=== PATIENT | male | born 1980 | race African-American/Black ===

== ENCOUNTER 2018-10-23 12:48 | Emergency (ER) | payer OTHER, SELFPAY ==
[~2018-10-23] VITALS: Ht 175.3 cm; Wt 72.7 kg
[2018-10-23] MEDS ORDERED: EPINEPHrine INJ 1 MG/ML 1ML AMP IM STA (13:16)
[2018-10-23] MEDS ORDERED: diphenhydrAMINE INJ 50MG/ML VIAL (J1200) IV ONE (13:30)
[2018-10-23] MEDS ORDERED: FAMOTIDINE INJ 20MG/2ML VIAL (S0028) IVP ONE (13:30)
[2018-10-23] MEDS ORDERED: NS 1,000 ML IV ONE (13:30)
[2018-10-23 13:31] LABS: BASO # 0.1 10^3/uL (0.0-0.2); BASO % 0.6 % (0.0-1.0); EOS # 0.5 10^3/uL (0.0-0.50); EOS % 6.5 % (0.0-3.0); HEMATOCRIT 43.4 % (42.0-52.0); HEMOGLOBIN 13.9 g/dl (13.5-17.5); LYMPH # 3.5 10^3/uL (1.5-4.5); LYMPH % 45.2 % (24.0-44.0); MEAN CORPUSCULAR HEMOGLOBIN 28.2 pg (27.0-33.0); MONO # 0.7 10^3/uL (0.0-0.8); MONO % 8.9 % (0.0-5.0); NEUTROPHILS % 38.7 % (36.0-66.0); PLATELET COUNT, AUTOMATED 287 10^3/uL (150-450); RED BLOOD COUNT 4.93 10^6/uL (4.30-6.10); WHITE BLOOD COUNT 7.8 10^3/uL (4.0-10.0)
[2018-10-23] MEDS ORDERED: ASPIRIN 81 MG CHEW TABLET PO ONE (13:45)
[2018-10-23] MEDS ORDERED: NITROGLYCERIN 0.4 MG SUBL TABLET SL PRN (13:45)
[2018-10-23 14:03] LABS: ALBUMIN 4.2 GM/DL (3.2-5.2); ALT/SGPT 27 U/L (12-78); BILIRUBIN,DIRECT < 0.1 MG/DL (0.0-0.2); BILIRUBIN,TOTAL 0.4 MG/DL (0.2-1.0); BLOOD UREA NITROGEN 16 MG/DL (7-18); CALCIUM LEVEL 9.6 MG/DL (8.5-10.1); CARBON DIOXIDE LEVEL 30 MEQ/L (21-32); CHLORIDE LEVEL 100 MEQ/L (98-107); CK-MB VALUE MASS < 1.0 NG/ML (<3.6); CPK CREATINE PHOSPHOKINASE 441 U/L (39-308); CREATININE FOR GFR 1.49 MG/DL (0.70-1.30); GLOMERULAR FILTRATION RATE > 60.0 (>60); GLUCOSE, FASTING 93 MG/DL (70-100); LIPASE 165 U/L (73-393); MB/CK RELATIVE INDEX 0.23 (< OR =4); POTASSIUM SERUM 4.2 MEQ/L (3.5-5.1); SODIUM LEVEL 137 MEQ/L (136-145); TOTAL PROTEIN 8.4 GM/DL (6.4-8.2); TROPONIN I < 0.02 NG/ML (< 0.10)
[2018-10-23 15:16] VITALS: BP 143/80
[2018-10-23] MEDS ORDERED: OMEP40CA2 PO (15:21)
--- NOTE | 2018-10-23 16:32 | REP ---
PA and lateral chest: There are no comparisons. The lung hernandez are clear. The cardiac size is normal. The kayode, mediastinum, and skeletal structures are unremarkable. Impression: Negative PA and lateral chest. Electronically Signed by Richie Quinonez MD 10/23/2018 04:24 P
--- NOTE | 2018-10-24 21:12 | ECGEPIP ---
[facility] - ED Test Date: 2018-10-23 Pat Name: MARISA YUN Department: Room: - Gender: Male [employer]: : 1980 Requested By: David Frank Order Number: [id number] Reading MD: Urmila Shelby Measurements Intervals [place] Rate: 66 P: 62 [place]: 164 QRS: 71 QRSD: 86 T: 54 QT: 371 QTc: 389 Interpretive Statements SINUS RHYTHM WITH SINUS ARRHYTHMIA ST ELEVATION, PROBABLY EARLY REPOLARIZATION, CLINICAL CORRELATION TO EXCLUDE ISCHEMIA NO PRIOR FOR COMPARISON Electronically Signed on 10-24-2018 21:12:14 EDT by Urmila Shelby
== END 2018-10-23 16:09 | disposition home or self-care (01) ==
LOC: M ED 12:48
DX: R07.89 Other chest pain (principal); R74.8 Abnormal levels of other serum enzymes; F17.210 Nicotine dependence, cigarettes, uncomplicated

== ENCOUNTER → 2018-11-25 | Outpatient (CLI) | payer SELFPAY ==
[~2018-11-25] MED LIST: OMEP40CA2 PO
== END ==
LOC: M OUTALCOH 08:08
PROVIDERS: ATTEND Psychiatry & Neurology Psychiatry
DX: Z03.89 Encounter for observation for other suspected diseases and conditions ruled out (principal)

== ENCOUNTER 2018-12-07 14:58 | Outpatient (RCR) | payer SELFPAY | END 2018-12-27 | LOC: M OUTALCOH 14:58 | PROVIDERS: ATTEND Psychiatry & Neurology Psychiatry | DX: Z03.89 Encounter for observation for other suspected diseases and conditions ruled out (principal) ==

== ENCOUNTER 2019-03-31 12:06 | Emergency (ER) | payer OTHER, SELFPAY ==
[~2019-03-31] VITALS: Ht 175.3 cm; Wt 80.1 kg
[~2019-03-31 12:06] MED LIST changes: -OMEP40CA2 PO; +OMEP40CA97 PO
[2019-03-31] MEDS ORDERED: ASPI-1 PO (12:22)
--- NOTE | 2019-03-31 15:22 | REP ---
CT brain: 03/31/2019. Indication: Headache. Recent head trauma. Comparison: None. Technique: Unenhanced axial CT images of the brain were obtained from skull base to vertex with coronal reconstructions provided. Findings: There is no acute intracranial hemorrhage, acute cortical infarction, mass effect, hydrocephalus or acute calvarial fracture. Cavum septum pellucidum is incidentally noted. There is mild periosteal mucosal thickening within the ethmoid air cells. Impression: No acute intracranial process. Electronically Signed by Rubio Berrios DO 03/31/2019 03:14 P
--- NOTE | 2019-03-31 15:27 | REP ---
CT cervical spine: 03/31/2019. Indication: Neck pain following recent cervical spine trauma. Comparison: None. Technique: Unenhanced axial CT images of the cervical spine were obtained with coronal and sagittal reconstructions provided. Findings: There is no acute fracture, subluxation or dislocation. There is straightening of the cervical lordosis. Chronic fracture of an anterior superior C5 osteophyte is present. The prevertebral and additional visualized paraspinal soft tissues are unremarkable. There is no hemorrhage or additional acute post traumatic sequelae within the spinal canal. Paranasal sinus mucosal disease is present including evidence of acute inflammation/frothy secretions within the left sphenoid sinus. Impression: No acute osseous injury of the cervical spine. Paranasal sinus mucosal disease. Electronically Signed by Rubio Berrios DO 03/31/2019 03:19 P
[2019-03-31 16:38] VITALS: BP 136/71
[2019-03-31] MEDS ORDERED: AMOX500C PO (16:48)
== END 2019-03-31 16:58 | disposition home or self-care (01) ==
LOC: M ED 12:06
DX: J01.90 Acute sinusitis, unspecified (principal); K04.7 Periapical abscess without sinus; Z79.82 Long term (current) use of aspirin

== ENCOUNTER 2019-05-04 05:35 | Emergency (ER) | payer OTHER ==
[~2019-05-04] VITALS: Ht 175.3 cm; Wt 79.9 kg
[~2019-05-04 05:35] MED LIST changes: +AMOX500C PO; +ASPI-1 PO
[2019-05-04] MEDS ORDERED: ACETAMINOPHEN 500 MG TAB PO ONE (08:00)
[2019-05-04] MEDS ORDERED: BENZOCAINE 20% GEL 9GM TUBE (ANBESOL MAX STRENGTH) TOP ONE (08:00)
[2019-05-04] MEDS ORDERED: LIDOCAINE 2% W/ EPINEPHRINE 1.7 ML DENTAL INJ SM ONE (08:00)
[2019-05-04 09:17] VITALS: BP 125/87
[2019-05-04] MEDS ORDERED: PENI500T PO (09:37)
== END 2019-05-04 09:48 | disposition home or self-care (01) ==
LOC: M ED 05:35
DX: K12.2 Cellulitis and abscess of mouth (principal)

== ENCOUNTER → 2019-06-20 | Outpatient (REF) ==
[~2019-06-20] MED LIST changes: +PENI500T PO
[2019-06-20 16:10] LABS: RUBELLA IgG QUALITATIVE IMMUNE (IMMUNE)
== END ==
LOC: M LAB 14:46
PROVIDERS: ATTEND Nurse Practitioner Adult Health
DX: Z02.1 Encounter for pre-employment examination (principal)

== ENCOUNTER → 2019-06-22 | Outpatient (REF) | LOC: M LAB 14:32 | PROVIDERS: ATTEND Nurse Practitioner Adult Health | DX: Z02.1 Encounter for pre-employment examination (principal) ==

== ENCOUNTER 2019-09-13 15:52 | Emergency (ER) | payer OTHER ==
[~2019-09-13] VITALS: Ht 175.3 cm; Wt 79.2 kg
[2019-09-13 15:53] VITALS: BP 116/71
[2019-09-13] MEDS ORDERED: VENTAER INH (16:18)
== END 2019-09-13 16:56 | disposition home or self-care (01) ==
LOC: M ED 15:52
DX: Z76.0 Encounter for issue of repeat prescription (principal); F17.210 Nicotine dependence, cigarettes, uncomplicated

== ENCOUNTER 2020-08-20 19:07 | Emergency (ER) | payer OTHER ==
[~2020-08-20] VITALS: Ht 175.3 cm; Wt 74.5 kg
[~2020-08-20 19:07] MED LIST changes: +VENTAER INH
[2020-08-20] MEDS ORDERED: EPIN11.7 IH (19:29)
--- NOTE | 2020-08-20 20:26 | ECGEPIP ---
[facility] - ED Test Date: 2020-08-20 Pat Name: MARISA YUN Department: Room: - Gender: Male Chalk Tester: Taye UGARTE : 1980 Requested By: MIMI SNYDER Order Number: [id number] Reading MD: Rob Campbell Measurements Intervals [place] Rate: 73 P: 47 [place]: 146 QRS: 78 QRSD: 78 T: 62 QT: 350 QTc: 385 Interpretive Statements Normal sinus rhythm Nonspecific ST-T wave abnormalities Similar to tracing done 10-23-18 Electronically Signed on 08-20-2020 20:25:50 EDT by Rob Campbell
[2020-08-20] MEDS ORDERED: VENTAER INH (22:03)
[2020-08-20 22:07] VITALS: BP 109/58
== END 2020-08-20 22:09 | disposition home or self-care (01) ==
LOC: M ED 19:07
DX: R00.0 Tachycardia, unspecified (principal); J45.909 Unspecified asthma, uncomplicated

== ENCOUNTER 2020-10-05 08:58 | Emergency (ER) | payer OTHER ==
[~2020-10-05] VITALS: Ht 175.3 cm; Wt 75.7 kg
[~2020-10-05 08:58] MED LIST changes: +EPIN11.7 IH; +OMEP40CA4 PO; -OMEP40CA97 PO
--- NOTE | 2020-10-05 10:10 | REP ---
INDICATION: please include toes in XRAY COMPARISON: None. TECHNIQUE: AP, lateral, bilateral oblique views right foot. FINDINGS: The osseous structures and joint spaces are intact and normal. There is no evidence for acute fracture or dislocation. Surrounding soft tissues are unremarkable. No subcutaneous emphysema or radiodense foreign body. IMPRESSION: . No acute fracture or dislocation. <Electronically signed by José Miguel Ingram > 10/05/20 1001
[2020-10-05 10:14] LABS: HEMATOCRIT 42.7 % (42.0-52.0); HEMOGLOBIN 13.8 g/dl (13.5-17.5); MEAN CORPUSCULAR HEMOGLOBIN 27.9 pg (27.0-33.0); MEAN CORPUSCULAR HGB CONC 32.3 g/dl (32.0-36.5); MEAN CORPUSCULAR VOLUME 86.3 fl (80.0-96.0); PLATELET COUNT, AUTOMATED 318 10^3/uL (150-450); RED BLOOD COUNT 4.95 10^6/uL (4.30-6.10); WHITE BLOOD COUNT 7.3 10^3/uL (4.0-10.0)
[2020-10-05 10:41] LABS: ALBUMIN 3.9 GM/DL (3.2-5.2); ALT/SGPT 25 U/L (12-78); BILIRUBIN,DIRECT < 0.1 MG/DL (0.0-0.2); BILIRUBIN,TOTAL 0.2 MG/DL (0.2-1.0); C REACTIVE PROTEIN QUANTITATIV 1.45 MG/DL (0.00-0.30); TOTAL PROTEIN 7.9 GM/DL (6.4-8.2); URIC ACID 8.1 MG/DL (3.5-7.2)
[2020-10-05 10:43] LABS: ERYTHROCYTE SEDIMENTATION RATE 27 mm/hr (0-15)
[2020-10-05] MEDS ORDERED: INDO50CA91 PO (11:30)
[2020-10-05 11:39] VITALS: BP 141/85
== END 2020-10-05 11:48 | disposition home or self-care (01) ==
LOC: M ED 08:58
DX: M10.071 Idiopathic gout, right ankle and foot (principal); J45.909 Unspecified asthma, uncomplicated; F17.200 Nicotine dependence, unspecified, uncomplicated

== ENCOUNTER 2021-02-25 08:21 | Outpatient (RCR) | payer OTHER ==
[~2021-02-25 08:21] MED LIST changes: +INDO50CA91 PO
== END 2021-02-26 ==
LOC: M OUTALCOH 08:21
PROVIDERS: ATTEND Psychiatry & Neurology Psychiatry
DX: F10.20 Alcohol dependence, uncomplicated (principal)

== ENCOUNTER 2021-03-01 14:48 | Outpatient (RCR) | payer OTHER | END 2021-03-29 | LOC: M OUTALCOH 14:48 | PROVIDERS: ATTEND Psychiatry & Neurology Psychiatry | DX: F10.20 Alcohol dependence, uncomplicated (principal) ==

== ENCOUNTER 2022-02-21 13:58 | Emergency (ER) | payer OTHER ==
[~2022-02-21] VITALS: Ht 175.3 cm; Wt 72.7 kg
[2022-02-21] MEDS ORDERED: KETOROLAC 30 MG/ML 1ML VIAL IV ONE ×2 (17:35→18:00)
[2022-02-21] MEDS ORDERED: KETOROLAC 60MG 2ML VIAL IM ONE (17:45)
[2022-02-21 17:49] LABS: ALBUMIN 5.1 G/DL (3.2-5.2); ALT/SGPT 25 U/L (7.0-40); BILIRUBIN,DIRECT 0.2 MG/DL (<0.4); BILIRUBIN,TOTAL 0.7 MG/DL (0.3-1.2); BLOOD UREA NITROGEN 13 MG/DL (9-23); CALCIUM LEVEL 10.5 MG/DL (8.5-10.1); CARBON DIOXIDE LEVEL 22 MMOL/L (20-31); CHLORIDE LEVEL 99 MMOL/L (98-107); CK-MB VALUE MASS < 1.0 NG/ML (<3.6); CPK CREATINE PHOSPHOKINASE 345 U/L (46-171); CREATININE FOR GFR 1.39 MG/DL (0.70-1.30); GLOMERULAR FILTRATION RATE > 60.0 (>60); GLUCOSE, FASTING 103 MG/DL (60-100); LIPASE 36 U/L (12-53); MB/CK RELATIVE INDEX 0.28 (< OR =4); POTASSIUM SERUM 4.7 MMOL/L (3.5-5.1); SODIUM LEVEL 135 MMOL/L (136-145); THYROID STIMULATING HORMONE 0.743 uIU/ML (0.55-4.78); TOTAL PROTEIN 9.5 G/DL (5.7-8.2)
[2022-02-21 18:05] LABS: BASO % 0.4 % (0.0-1.0); EOS % 0.3 % (0.0-3.0); HEMATOCRIT 45.2 % (42.0-52.0); LYMPH % 13.2 % (24.0-44.0); MEAN CORPUSCULAR HEMOGLOBIN 27.5 pg (27.0-33.0); MEAN CORPUSCULAR HGB CONC 33.2 g/dl (32.0-36.5); MEAN CORPUSCULAR VOLUME 82.8 fl (80.0-96.0); MONO # 0.8 10^3/uL (0.0-0.8); MONO % 10.1 % (2.0-8.0); NEUTROPHILS # 5.8 10^3/uL (1.5-8.5); NEUTROPHILS % 75.7 % (36.0-66.0); PLATELET COUNT, AUTOMATED 329 10^3/uL (150-450); RED BLOOD COUNT 5.46 10^6/uL (4.30-6.10); WHITE BLOOD COUNT 7.7 10^3/uL (4.0-10.0)
[2022-02-21 18:38] LABS: CK-MB VALUE MASS < 1.0 NG/ML (<3.6); CPK CREATINE PHOSPHOKINASE 291 U/L (46-171); MB/CK RELATIVE INDEX 0.34 (< OR =4)
[2022-02-21] MEDS ORDERED: ISOVUE-370 76% 100ML VIAL As Ordered ONE (18:45)
[2022-02-21 20:18] VITALS: BP 116/85
== END 2022-02-21 20:26 | disposition home or self-care (01) ==
LOC: M ED 13:58
DX: N40.0 Benign prostatic hyperplasia without lower urinary tract symptoms (principal); K62.89 Other specified diseases of anus and rectum; K75.89 Other specified inflammatory liver diseases; R00.2 Palpitations; R00.0 Tachycardia, unspecified; F10.10 Alcohol abuse, uncomplicated; Z79.899 Other long term (current) drug therapy
CPT/HCPCS: 71045; 74177; 80048; 80076; 82550; 82553; 83690; 84443; 84484; 85025; 93005; 93041; 94760; 96374; 99285; J1885

== ENCOUNTER 2022-06-04 19:36 | Emergency (ER) | payer SELFPAY, OTHER ==
[~2022-06-04] VITALS: Ht 175.3 cm; Wt 77.7 kg
[2022-06-04 21:19] LABS: BASO % 0.6 % (0.0-1.0); EOS # 0.2 10^3/uL (0.0-0.5); EOS % 2.4 % (0.0-3.0); HEMATOCRIT 42.4 % (42.0-52.0); HEMOGLOBIN 13.8 g/dl (13.5-17.5); LYMPH # 2.2 10^3/uL (1.5-5.0); LYMPH % 30.5 % (24.0-44.0); MEAN CORPUSCULAR HEMOGLOBIN 27.5 pg (27.0-33.0); MEAN CORPUSCULAR HGB CONC 32.5 g/dl (32.0-36.5); MEAN CORPUSCULAR VOLUME 84.5 fl (80.0-96.0); MONO # 0.5 10^3/uL (0.0-0.8); MONO % 6.9 % (2.0-8.0); NEUTROPHILS # 4.3 10^3/uL (1.5-8.5); NEUTROPHILS % 59.3 % (36.0-66.0); PLATELET COUNT, AUTOMATED 286 10^3/uL (150-450); RED BLOOD COUNT 5.02 10^6/uL (4.30-6.10); WHITE BLOOD COUNT 7.2 10^3/uL (4.0-10.0)
[2022-06-04 21:33] LABS: INR 1.02; PROTHROMBIN TIME 13.6 SECONDS (12.5-14.5)
[2022-06-04 21:34] LABS: PARTIAL THROMBOPLASTIN TIME 29.2 SECONDS (24.8-34.2)
[2022-06-04 22:31] LABS: ALBUMIN 4.2 G/DL (3.2-5.2); ALKALINE PHOSPHATASE 51 U/L (46-116); ALT/SGPT 23 U/L (7.0-40); AST/SGOT 24 U/L (<34); BILIRUBIN,DIRECT 0.1 MG/DL (<0.4); BILIRUBIN,TOTAL 0.4 MG/DL (0.3-1.2); BLOOD UREA NITROGEN 9 MG/DL (9-23); CALCIUM LEVEL 9.6 MG/DL (8.5-10.1); CARBON DIOXIDE LEVEL 27 MMOL/L (20-31); CHLORIDE LEVEL 104 MMOL/L (98-107); CK-MB VALUE MASS < 1.0 NG/ML (<3.6); CPK CREATINE PHOSPHOKINASE 445 U/L (46-171); FREE T4 0.95 NG/DL (0.89-1.76); GLOMERULAR FILTRATION RATE > 60.0 (>60); GLUCOSE, FASTING 87 MG/DL (60-100); MAGNESIUM LEVEL 1.7 MG/DL (1.8-2.4); MB/CK RELATIVE INDEX 0.22 (< OR =4); PHOSPHORUS LEVEL 2.7 MG/DL (2.5-4.9); POTASSIUM SERUM 4.8 MMOL/L (3.5-5.1); SODIUM LEVEL 139 MMOL/L (136-145); THYROID STIMULATING HORMONE 0.371 uIU/ML (0.55-4.78)
[2022-06-04 23:01] VITALS: BP 96/62
[2022-06-04] MEDS ORDERED: ISOVUE-370 76% 100ML VIAL As Ordered ONE (23:13)
[2022-06-04] MEDS ORDERED: MAGNESIUM OXIDE 400MG TAB (MAG-OX) PO ONE (23:15)
[2022-06-04 23:42] LABS: TOTAL PROTEIN 7.7 G/DL (5.7-8.2)
[2022-06-05 00:10] LABS: HIV 1&2 SCREEN CENTAUR NEGATIVE (NEGATIVE)
[2022-06-05 01:06] LABS: CK-MB VALUE MASS < 1.0 NG/ML (<3.6)
[2022-06-05 01:11] LABS: CPK CREATINE PHOSPHOKINASE 284 U/L (46-171); MB/CK RELATIVE INDEX 0.35 (< OR =4)
== END 2022-06-05 02:08 | disposition home or self-care (01) ==
LOC: M ED 19:36
DX: R00.2 Palpitations (principal); R42 Dizziness and giddiness; M54.6 Pain in thoracic spine
CPT/HCPCS: 36415; 71046; 71275; 80048; 80076; 82550; 82553; 83735; 84100; 84439; 84443; 84484; 85025; 85610; 85730; 87389; 93005; 93041; 94760; 99285; Q9967

== ENCOUNTER 2022-06-29 20:04 | Emergency (ER) | payer OTHER ==
[~2022-06-29] VITALS: Ht 175.3 cm; Wt 78.7 kg
[2022-06-29] MEDS ORDERED: METO1TAB87 (20:19)
[2022-06-29 21:24] LABS: BASO # 0.1 10^3/uL (0.0-0.2); BASO % 0.6 % (0.0-1.0); EOS # 0.5 10^3/uL (0.0-0.5); EOS % 5.6 % (0.0-3.0); HEMATOCRIT 42.2 % (42.0-52.0); HEMOGLOBIN 13.2 g/dl (13.5-17.5); LYMPH # 2.2 10^3/uL (1.5-5.0); LYMPH % 26.2 % (24.0-44.0); MEAN CORPUSCULAR HEMOGLOBIN 26.8 pg (27.0-33.0); MEAN CORPUSCULAR HGB CONC 31.3 g/dl (32.0-36.5); MEAN CORPUSCULAR VOLUME 85.8 fl (80.0-96.0); MONO # 0.7 10^3/uL (0.0-0.8); MONO % 7.9 % (2.0-8.0); NEUTROPHILS % 59.5 % (36.0-66.0); PLATELET COUNT, AUTOMATED 284 10^3/uL (150-450); RED BLOOD COUNT 4.92 10^6/uL (4.30-6.10); WHITE BLOOD COUNT 8.4 10^3/uL (4.0-10.0)
[2022-06-29 21:42] LABS: LIPASE 32 U/L (12-53)
[2022-06-29 21:44] LABS: CK-MB VALUE MASS < 1.0 NG/ML (<3.6)
[2022-06-29 22:14] LABS: ALBUMIN 4.3 G/DL (3.2-5.2); ALKALINE PHOSPHATASE 69 U/L (46-116); ALT/SGPT 23 U/L (7.0-40); AST/SGOT 21 U/L (<34); BILIRUBIN,DIRECT 0.1 MG/DL (<0.4); BILIRUBIN,TOTAL 0.3 MG/DL (0.3-1.2); BLOOD UREA NITROGEN 10 MG/DL (9-23); CALCIUM LEVEL 9.4 MG/DL (8.5-10.1); CARBON DIOXIDE LEVEL 30 MMOL/L (20-31); CHLORIDE LEVEL 103 MMOL/L (98-107); CPK CREATINE PHOSPHOKINASE 731 U/L (46-171); CREATININE FOR GFR 1.26 MG/DL (0.70-1.30); GLOMERULAR FILTRATION RATE > 60.0 (>60); GLUCOSE, FASTING 92 MG/DL (60-100); MB/CK RELATIVE INDEX 0.13 (< OR =4); POTASSIUM SERUM 4.3 MMOL/L (3.5-5.1); SODIUM LEVEL 139 MMOL/L (136-145); TOTAL PROTEIN 7.8 G/DL (5.7-8.2)
[2022-06-29 23:35] VITALS: BP 136/74
== END 2022-06-29 23:37 | disposition home or self-care (01) ==
LOC: M ED 20:04
DX: R00.2 Palpitations (principal); R00.1 Bradycardia, unspecified; I49.9 Cardiac arrhythmia, unspecified; J45.909 Unspecified asthma, uncomplicated; F10.10 Alcohol abuse, uncomplicated; Z79.899 Other long term (current) drug therapy

== ENCOUNTER 2022-10-26 23:56 | Emergency (ER) | payer OTHER, SELFPAY ==
[~2022-10-26] VITALS: Ht 172.7 cm; Wt 78.1 kg
[~2022-10-26 23:56] MED LIST changes: +METO1TAB87
[2022-10-26 23:57] VITALS: TEMP 97.5
[2022-10-27 02:40] LABS: BASO # 0.1 10^3/uL (0.0-0.2); BASO % 0.6 % (0.0-1.0); EOS # 0.6 10^3/uL (0.0-0.5); EOS % 6.5 % (0.0-3.0); HEMATOCRIT 45.3 % (42.0-52.0); HEMOGLOBIN 14.3 g/dl (13.5-17.5); LYMPH # 2.2 10^3/uL (1.5-5.0); LYMPH % 22.8 % (24.0-44.0); MEAN CORPUSCULAR HEMOGLOBIN 26.9 pg (27.0-33.0); MEAN CORPUSCULAR HGB CONC 31.6 g/dl (32.0-36.5); MEAN CORPUSCULAR VOLUME 85.3 fl (80.0-96.0); MONO # 0.8 10^3/uL (0.0-0.8); NEUTROPHILS # 6.1 10^3/uL (1.5-8.5); NEUTROPHILS % 61.9 % (36.0-66.0); PLATELET COUNT, AUTOMATED 303 10^3/uL (150-450); RED BLOOD COUNT 5.31 10^6/uL (4.30-6.10); WHITE BLOOD COUNT 9.8 10^3/uL (4.0-10.0)
[2022-10-27 03:09] LABS: LIPASE 39 U/L (12-53)
[2022-10-27 03:10] LABS: CK-MB VALUE MASS 1.6 NG/ML (<3.6)
[2022-10-27 03:11] LABS: ALBUMIN 4.3 G/DL (3.2-5.2); ALKALINE PHOSPHATASE 60 U/L (46-116); ALT/SGPT 31 U/L (7.0-40); AST/SGOT 34 U/L (<34); BILIRUBIN,DIRECT 0.1 MG/DL (<0.4); BILIRUBIN,TOTAL 0.4 MG/DL (0.3-1.2); BLOOD UREA NITROGEN 9 MG/DL (9-23); CALCIUM LEVEL 9.4 MG/DL (8.5-10.1); CARBON DIOXIDE LEVEL 26 MMOL/L (20-31); CHLORIDE LEVEL 104 MMOL/L (98-107); CREATININE FOR GFR 1.24 MG/DL (0.70-1.30); GLOMERULAR FILTRATION RATE > 60.0 (>60); GLUCOSE, FASTING 93 MG/DL (60-100); POTASSIUM SERUM 4.7 MMOL/L (3.5-5.1); SODIUM LEVEL 141 MMOL/L (136-145); TOTAL PROTEIN 8.1 G/DL (5.7-8.2)
[2022-10-27 03:13] LABS: FREE T4 0.77 NG/DL (0.89-1.76); THYROID STIMULATING HORMONE 0.502 uIU/ML (0.55-4.78)
[2022-10-27 03:51] LABS: CPK CREATINE PHOSPHOKINASE 1447 U/L (46-171); MB/CK RELATIVE INDEX 0.11 (< OR =4)
[2022-10-27] MEDS ORDERED: NS 1,000 ML IV ONE (04:00)
[2022-10-27 04:01] LABS: CK-MB VALUE MASS 1.5 NG/ML (<3.6)
[2022-10-27 04:15] LABS: CPK CREATINE PHOSPHOKINASE 1317 U/L (46-171); MB/CK RELATIVE INDEX 0.11 (< OR =4)
[2022-10-27 04:45] VITALS: BP 119/79; O2SAT 100
== END 2022-10-27 05:01 | disposition home or self-care (01) ==
LOC: M ED 23:56
DX: R74.8 Abnormal levels of other serum enzymes (principal); R00.1 Bradycardia, unspecified; F10.10 Alcohol abuse, uncomplicated; Z79.899 Other long term (current) drug therapy

== ENCOUNTER 2023-07-09 12:06 | Emergency (ER) | payer OTHER, SELFPAY ==
[~2023-07-09] VITALS: Ht 175.3 cm; Wt 79.9 kg
[2023-07-09] MEDS ORDERED: BACT800T5 PO (13:49)
[2023-07-09] MEDS ORDERED: ISOVUE-370 76% 100ML VIAL As Ordered ONE (14:27)
[2023-07-09 15:00] LABS: BASO # 0.1 10^3/uL (0.0-0.2); BASO % 0.5 % (0.0-1.0); EOS # 0.5 10^3/uL (0.0-0.5); EOS % 4.9 % (0.0-3.0); HEMATOCRIT 40.1 % (42.0-52.0); HEMOGLOBIN 13.1 g/dl (13.5-17.5); LYMPH # 1.6 10^3/uL (1.5-5.0); LYMPH % 16.4 % (24.0-44.0); MEAN CORPUSCULAR HEMOGLOBIN 27.3 pg (27.0-33.0); MEAN CORPUSCULAR HGB CONC 32.7 g/dl (32.0-36.5); MEAN CORPUSCULAR VOLUME 83.7 fl (80.0-96.0); MONO # 0.8 10^3/uL (0.0-0.8); MONO % 8.8 % (2.0-8.0); NEUTROPHILS # 6.5 10^3/uL (1.5-8.5); NEUTROPHILS % 69.1 % (36.0-66.0); PLATELET COUNT, AUTOMATED 251 10^3/uL (150-450); RED BLOOD COUNT 4.79 10^6/uL (4.30-6.10); WHITE BLOOD COUNT 9.5 10^3/uL (4.0-10.0)
[2023-07-09 15:07] LABS: ERYTHROCYTE SEDIMENTATION RATE 34 mm/hr (0-15)
[2023-07-09 15:54] LABS: C REACTIVE PROTEIN QUANTITATIV 4.1 MG/DL (<1.0); POTASSIUM SERUM 4.6 MMOL/L (3.5-5.1)
[2023-07-09 16:25] LABS: URIC ACID 8.9 MG/DL (3.7-9.2)
[2023-07-09] MEDS ORDERED: COLC0.6T47 PO (17:01)
[2023-07-09] MEDS: COLCHICINE 0.6 MG TABLET PO ONE (17:08)
[2023-07-09 17:12] VITALS: BP 132/70; TEMP 97.8; O2SAT 100
[2023-07-09 17:24] LABS: SOURCE, BODY FLUID RT KNEE; SYNOVIAL FLUID COLOR PALE YELLOW (COLORLESS)
[2023-07-09 17:32] LABS: CRYSTALS, BODY FLUID NONE SEEN (NONE SEEN); SOURCE, BODY FLUID CRYSTALS RT KNEE
== END 2023-07-09 17:13 | disposition home or self-care (01) ==
LOC: M ED 12:06
DX: M10.061 Idiopathic gout, right knee (principal); Z79.899 Other long term (current) drug therapy
CPT/HCPCS: 36415; 73701; 80047; 84132; 84550; 85025; 85652; 86140; 87070; 87205; 89051; 89060; 93971; 99284; Q9967

== ENCOUNTER → 2023-10-12 | Outpatient (REF) ==
[~2023-10-12] MED LIST changes: +BACT800T5 PO; +COLC0.6T47 PO
== END ==
LOC: M LAB 11:47
PROVIDERS: ATTEND Nurse Practitioner Adult Health
DX: Z01.89 Encounter for other specified special examinations (principal)

== ENCOUNTER 2024-08-03 15:32 | Emergency (ER) | payer MEDICAID, SELFPAY ==
[~2024-08-03] VITALS: Ht 175.3 cm; Wt 78.1 kg
[~2024-08-03 15:32] MED LIST changes: +EMTRICITABINE/TENOFOVIR 200MG/300MG TABLET PO SCH; +RALTEGRAVIR 400 MG TAB (ISENTRESS) PO SCH
[2024-08-03 18:46] VITALS: BP 124/77; TEMP 98.6; O2SAT 100
[2024-08-03] MEDS ORDERED: EXPOSURE KIT-ADULT 7 DAY SUPPLY PO ONE (18:50)
[2024-08-03] MEDS: RALTEGRAVIR 400 MG TAB (ISENTRESS) PO ONE (19:41)
[2024-08-03] MEDS: EMTRICITABINE/TENOFOVIR 200MG/300MG TABLET PO ONE (19:41)
== END 2024-08-03 19:45 | disposition home or self-care (01) ==
LOC: M ED 15:32
DX: Z20.6 Contact with and (suspected) exposure to human immunodeficiency virus [HIV] (principal); J45.909 Unspecified asthma, uncomplicated